=== PATIENT | male | born 1965 | race Caucasian/White ===

== ENCOUNTER 2018-02-23 11:11 | Outpatient (CLI) | payer OTHER ==
--- NOTE | 2018-02-23 12:10 | Diagnostic Imaging Report ---
JEREMIAS MALDONADO [facility] [id number] [facility] [address] [address] Report Submission Date: Feb 23, 2018 12:04:16 PM CDT Patient Study Name: LOUISE DIAZ Date: Feb 23, 2018 11:26:16 AM CDT Modality Type: DX Gender: M Description: SPINE : 69 Institution: [facility] Physician: JEREMIAS MALDONADO Examination: Plain film lumbar spine History: chronic low back pain/DJD (Hx) / low back pain/DJD Findings: 3 views of the lumbar spine demonstrate normal height. No anterior compression. Scattered osteophytes. Disc space narrowing L4/L5 and L5/S1. No soft tissue abnormalities. Impression: Degenerative changes. No compression deformity. If patient is experiencing neurologic symptoms, consider obtaining MRI to further evaluate. Electronically signed on Feb 23, 2018 12:04:16 PM CDT by: Rinku HARRIS
--- NOTE | 2018-02-23 12:10 | Diagnostic Imaging Report ---
JEREMIAS MALDONADO [facility] [id number] [facility] [address] [address] Report Submission Date: Feb 23, 2018 11:46:21 AM CDT Patient Study Name: LOUISE DIAZ Date: Feb 23, 2018 11:21:22 AM CDT Modality Type: DX Gender: M Description: SHOULDER : 69 Institution: [facility] Physician: JEREMIAS MALDONADO Examination: Plain film shoulder bilaterally History: CHRONIC PAIN BILATERAL SHOULDERS WITH NUMBNESS DOWN LEFT ARM FOR OVER 5 YEARS WITH HX OF SLIPPED DISC OF C/T SPINE. Comparison exams: None provided Findings: 2 views of the right and left shoulder demonstrate normal cortical margins. No evidence for fracture or dislocation. Minimal acromioclavicular joint degenerative changes. No soft tissue abnormality Impression: No acute osseous process. Electronically signed on Feb 23, 2018 11:46:21 AM CDT by: Rinku HARRIS
== END 2018-02-23 11:12 ==
LOC: RAD 11:11
PROVIDERS: ATTEND Family Medicine
DX: M25.511 Pain in right shoulder (principal); M25.512 Pain in left shoulder; M54.5 Low back pain
CPT/HCPCS: 72100

== ENCOUNTER 2018-12-28 13:15 | Outpatient (CLI) | payer MEDICARE, OTHER | END 2018-12-28 13:30 | LOC: LAB 13:15 | PROVIDERS: ATTEND Family Medicine | DX: E78.1 Pure hyperglyceridemia (principal) | CPT/HCPCS: 36415; 80061 ==

== ENCOUNTER 2019-01-03 11:53 | Outpatient (CLI) | payer MEDICARE, OTHER ==
[2019-01-03 12:15] LABS: MEAN CORPUSCULAR HEMOGLOBIN 30.4 pg (28.0-34.0)
[2019-01-03 12:16] LABS: BASOPHILS % 0.7 (0.0-1.5); EOSINOPHILS % 4.3 % (0.0-6.8); MONOCYTES % 5.6 % (0.0-11.0); NEUTROPHILS # 6.6 # k/uL (1.4-7.7)
[2019-01-03 12:25] LABS: eGFR (Non-African) > 60
== END 2019-01-03 12:08 ==
LOC: LAB 11:53
PROVIDERS: ATTEND Family Medicine
DX: Z79.899 Other long term (current) drug therapy (principal)
CPT/HCPCS: 36415; 80053; 85025

== ENCOUNTER 2019-02-15 10:17 | Outpatient (CLI) | payer MEDICARE, OTHER | END 2019-02-15 10:25 | LOC: LAB 10:17 | PROVIDERS: ATTEND Family Medicine | DX: E78.1 Pure hyperglyceridemia (principal) | CPT/HCPCS: 36415; 80061 ==

== ENCOUNTER 2019-05-13 13:49 | Outpatient (CLI) | payer MEDICARE, OTHER ==
[2019-05-25 13:16] LABS: eGFR (Non-African) > 60
[2019-05-25 13:17] LABS: HDL 44 mg/dL (>40)
== END 2019-05-13 13:54 | disposition home or self-care (01) ==
LOC: LAB 13:49
PROVIDERS: ATTEND Family Medicine
DX: I10 Essential (primary) hypertension (principal); E78.5 Hyperlipidemia, unspecified
CPT/HCPCS: 36415; 80048; 80061

== ENCOUNTER 2019-12-14 16:21 | Outpatient (CLI) | payer MEDICARE, OTHER | END 2019-12-14 16:30 | LOC: LABRHC 16:21 | PROVIDERS: ATTEND Family Medicine | DX: E78.1 Pure hyperglyceridemia (principal); Z51.81 Encounter for therapeutic drug level monitoring | CPT/HCPCS: 80053; 80061 ==